=== PATIENT | male | born 1985 | race Caucasian/White ===

== ENCOUNTER 2025-05-26 09:04 | Emergency (ER) | payer BC, SELFPAY ==
[2025-05-26 09:12] VITALS: BP 180/100
[2025-05-26 10:24] VITALS: BMI 33.0
[2025-05-26] MEDS: TORADOL 15 MG IM (12:03)
[2025-05-26] MEDS: VALIUM 2 MG PO (12:04)
[2025-05-26] MEDS: DELTASONE 50 MG PO (12:04)
--- NOTE | 2025-05-26 13:11 | ED.GENMED ---
History of Present Illness
General
Chief Complaint: Musculo-Skeletal Complaint
Time Seen by Provider: 05/26/25 11:08
History of Present Illness
History of Present Illness:
40-year-old male without significant past medical history presenting to the emergency department for right-sided neck pain. Patient reports that last week he was having some right shoulder pain, however in the last night started to have focal
discomfort to the right side of the neck with severe pain. Patient reports difficulty ranging his neck secondary to pain. Denies any direct trauma or any pain to the midline spine. Denies fevers. Reports pins and needle sensation to his right
upper extremity. Denies chest pain or difficulty breathing. Does report a similar injury about 20 years ago. Denies additional acute medical complaints.
Past History
Past History
ED Past Medical History: Asthma
ED Past Surgical History: None
Social History
Tobacco: Non-smoker
Alcohol: None
Phy Exam
Physical Exam
Physical Exam:
General: Well-appearing, no clinical signs of dehydration, nontoxic and in no acute distress
HEENT: protecting airway
Neck: appears supple. No midline spinal tenderness. Focal tenderness over the sternocleidomastoid musculature with hypertonicity. Limited range of motion secondary to pain. No overlying skin changes
CV: Normal heart rate
Resp: No accessory muscle use, no increased work of breathing
Abd: no distension
Extremities: No deformities, no swelling
Neuro: alert, no focal neurologic deficit
: deferred
Rectal: deferred
Psych: Normal affect
Skin: Intact
Course
Orders/Labs/Results
Orders:
Orders
05/26/25 11:24
Diazepam [Valium] 2 mg PO NOW STA
Ketorolac [Toradol] 15 mg IM NOW STA
Prednisone [Deltasone] 50 mg PO NOW STA
Vital Signs
Initial and Last Documented VS:
Initial Vital Signs
Temp Pulse Resp BP Pulse Ox
98.0 F 86 16 180/100 98
05/26/25 09:12 05/26/25 09:12 05/26/25 09:12 05/26/25 09:12 05/26/25 09:12
Last Documented Vital Signs
Temp Pulse Resp BP Pulse Ox
98.0 F 86 16 180/100 98
05/26/25 09:12 05/26/25 09:12 05/26/25 09:12 05/26/25 09:12 05/26/25 09:12
MDM/Problems Addressed
MDM/Problems Addressed:
40-year-old male presenting to the emergency department with right neck pain. Vital signs on arrival are significant for high blood pressure.
On exam patient is in no acute distress, however does appear uncomfortable secondary to pain. Patient's symptoms appear most consistent with torticollis and possible cervical radiculopathy. No report of trauma, no midline tenderness without
concern for spinal fracture or spinal compromise. Patient afebrile, no systemic symptoms, without concern for infectious pathology. Ultimately feel stable for discharge with outpatient supportive therapy. Will start patient on steroids. Patient
administered Valium for muscle spasm. Also recommended use of NSAIDs for anti-inflammatory relief.
13:15 - On reassessment patient notes minimal improvement of his symptoms. Patient given a Percocet for continued pain control. Continue to feel patient stable for discharge. Return precautions discussed and patient verbalized understanding
*Pulse Oximetry
SaO2: 98
Oxygen Mode of Delivery: Room air
Patient hypoxic: no
*Critical Care Note
Total Time (30-74mins, 75-104mins- exclusive of procedures): Not Applicable
ED Attending Note
-
Portions of this chart may have been created with voice recognition software.� Occasional wrong word or��sound alike� substitutions may have occurred due to the inherent limitations of voice recognition software.
Discharge Plan
Departure
Prescriptions:
No Action
tamsulosin 0.4 MG capsule
0.4 mg PO DAILY Qty: 30 0RF
diclofenac sodium 25 MG tablet,delayed release (DR/EC)
25 mg PO BIDPRN PRN (Reason: pain) Qty: 20 0RF
ondansetron 4 MG tablet,disintegrating
4 mg PO TIDPRN PRN (Reason: nausea/vomiting) Qty: 14 0RF
Referrals:
Raf Rodriguez MD [Family Provider, Family Practice]
Interventions
Interventions:
*Risk Screen - Suicide Last Done: 05/26/25 09:12
*General Assessment Last Done: 05/26/25 10:24
*Neglect/Abuse Screening Last Done: 05/26/25 09:12
*ED- Fall Risk Assessment Last Done: 05/26/25 10:24
*ED COVID-19 Vaccine History Last Done: 05/26/25 10:24
*ED Influenza Vaccine History Last Done: 05/26/25 10:24
ED-Musculoskeletal Assessment Last Done: 05/26/25 10:24
Discharge Date and Time
Print Language: ITALIAN
[2025-05-26] MEDS: PERCOCET 5/325 1 TABLET PO (13:41)
[2025-05-26 13:54] VITALS: BP 155/98
== END 2025-05-26 14:13 | disposition home or self-care (01) ==
LOC: EMR 09:04
PROVIDERS: EMERGENCY PHYSICIAN Student in an Organized Health Care Education/Training Program; FAMILY PHYSICIAN Family Medicine
DX: M54.12 Radiculopathy, cervical region (principal); M43.6 Torticollis; J45.909 Unspecified asthma, uncomplicated
CPT/HCPCS: 99282